=== PATIENT | female | born 1975 | race Caucasian/White ===

== ENCOUNTER 2017-11-26 20:49 | Emergency (ER) | payer OTHER, BC ==
--- NOTE | 2017-11-26 20:54 | EDM.PDOC ---
ED HPI GENERAL MEDICAL PROBLEM - General Chief Complaint: Trauma Stated Complaint: poss head injury Time Seen by Provider: 11/26/17 20:49 Source of Information: Reports: Patient, Family () History Limitations: Reports: No Limitations - History of Present Illness INITIAL COMMENTS - FREE TEXT/NARRATIVE: A trauma alert was called on this patient. The patient states that she was bucked off a horse onto pasture dirt around 20: 00 this evening. She was not wearing a helmet. She states that she recalls being bucked off, and believes that she landed on her head, but does not recall the landing itself. There may have been brief loss of consciousness. The patient complains of a left-sided headache, upper and middle left back pain , and lower left rib pain with breathing. She denies injury to any of her extremities. A cervical collar was placed immediately after arrival to the ED. The patient's PCP is Brit Cruz. Left Abdomen Pain Score (Numeric/FACES): 10 Headache Pain Score (Numeric/FACES): 10 - Related Data Allergies Allergy/AdvReac Type Severity Reaction Status Date / Time No Known Allergies Allergy Verified 11/26/17 21:00 Home Meds: Home Meds Norgestimate-Ethinyl Estradiol [Tri-Sprintec Tablet] 1 tab PO DAILY 08/04/14 [ History] Venlafaxine HCl [Venlafaxine ER] 1 cap PO DAILY 08/04/14 [History] Past Medical History Psychiatric History: Reports: Depression - Past Surgical History HEENT Surgical History: Reports: Naso-Sinus Surgery, Oral Surgery (wisdom teeth extraction) Female Surgical History: Reports: Section (x 1) Musculoskeletal Surgical History: Reports: Arthroscopic Knee (left), Carpal Tunnel (bilateral) Social & Family History - Tobacco Use Smoking Status *Q: Never Smoker - Alcohol Use Alcohol Use History: Yes Alcohol Use Frequency: Socially - Recreational Drug Use Recreational Drug Use: No - Living Situation & Occupation Living situation: Reports: , with Spouse, with Family (daughter) 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 ED EXAM, GENERAL - Physical Exam Exam: See Below Exam Limited By: No Limitations General Appearance: Alert, WD/WN, No Apparent Distress Eye Exam: Bilateral Eye: EOMI, Normal Inspection Ears: Normal External Exam, Normal Canal, Hearing Grossly Normal, Normal TMs Nose: Normal Inspection, No Blood Throat/Mouth: Normal Inspection, Normal Lips, Normal Voice, No Airway Compromise Head: Normocephalic, Other (Slight ecchymosis to the left forehead and about the left eye) Neck: Normal Inspection, Supple, Non-Tender, Full Range of Motion Respiratory/Chest: No Respiratory Distress, Lungs Clear, Normal Breath Sounds, No Accessory Muscle Use, Other (No visible abnormality to the lower left ribs, such as swelling, erythema, ecchymosis, or abrasion, however, the patient has tenderness to palpation in that area) Cardiovascular: Normal Peripheral Pulses, Regular Rate, Rhythm, No Edema, No Gallop, No JVD, No Murmur, No Rub Peripheral Pulses: 4+: Radial (L), Radial (R) GI/Abdominal: Normal Bowel Sounds, Soft, Non-Tender, No Organomegaly, No Distention, No Abnormal Bruit, No Mass (Female) Exam: Deferred Rectal (Female) Exam: Deferred Back Exam: Normal Inspection, Full Range of Motion, NT Extremities: Normal Inspection, Normal Range of Motion, Non-Tender, No Pedal Edema, Normal Capillary Refill Neurological: Alert, Oriented, CN II-XII Intact, Normal Cognition, No Motor/ Sensory Deficits Psychiatric: Normal Affect Skin Exam: Warm, Dry, Intact, Normal Color, No Rash Course - Vital Signs Last Recorded V/S: Last Vital Signs Temp 36.4 C 11/26/17 20:53 Pulse 88 11/26/17 22:15 Resp 18 11/26/17 22:15 BP 135/78 11/26/17 22:15 Pulse Ox 99 11/26/17 22:15 - Orders/Labs/Meds Orders: Active Orders 24 hr Category Date Time Status Cervical Spine wo Cont [CT] Stat Exams 11/26/17 20:50 Taken Chest 1V Frontal [CR] Stat Exams 11/26/17 20:52 Taken Chest Abdomen Pelvis w Cont [CT] Stat Exams 11/26/17 20:50 Taken Head wo Cont [CT] Stat Exams 11/26/17 20:50 Taken Labs: Laboratory Tests 11/26/17 11/26/17 11/26/17 Range/Units 20:55 20:55 20:55 WBC 7.41 (3.98-10.04) K/mm3 RBC 4.58 (3.98-5.22) M/mm3 Hgb 14.0 (11.2-15.7) gm/L Hct 41.1 (34.1-44.9) % MCV 89.7 (79.4-94.8) fl MCH 30.6 (25.6-32.2) pg MCHC 34.1 (32.2-35.5) g/dl RDW Std Deviation 39.7 (36.4-46.3) fL Plt Count 385 H (182-369) K/mm3 MPV 8.8 L (9.4-12.3) fl Neutrophils % (Manual) 52 (40-60) % Band Neutrophils % 1 (0-10) % Lymphocytes % (Manual) 37 (20-40) % Atypical Lymphs % 0 % Monocytes % (Manual) 7 (2-10) % Eosinophils % (Manual) 1 (0.7-5.8) % Basophils % (Manual) 2 H (0.1-1.2) Platelet Estimate Adequate RBC Morph Comment Normal PT 10.3 (9.5-12.1) SECONDS INR 0.94 APTT 22 L (24-31) SECONDS Sodium 140 (136-145) mEq/L Potassium 3.4 L (3.5-5.1) mEq/L Chloride 104 (98-107) mEq/L Carbon Dioxide 20 L (21-32) mEq/L Anion Gap 19.4 H (5-15) BUN 22 H (7-18) mg/dL Creatinine 1.2 H (0.55-1.02) mg/dL Est Cr Clr Drug Dosing 49.29 mL/min Estimated GFR (MDRD) 50 (>60) mL/min BUN/Creatinine Ratio 18.3 H (14-18) Glucose 110 H (74-106) mg/dL Calcium 9.0 (8.5-10.1) mg/dL Total Bilirubin 0.1 L (0.2-1.0) mg/dL AST 29 (15-37) U/L ALT 30 (14-59) U/L Alkaline Phosphatase 74 (46-116) U/L Total Protein 7.7 (6.4-8.2) g/dl Albumin 3.8 (3.4-5.0) g/dl Globulin 3.9 gm/dL Albumin/Globulin Ratio 1.0 (1-2) HCG, Quant mIU/mL 11/26/17 Range/Units 20:55 WBC (3.98-10.04) K/mm3 RBC (3.98-5.22) M/mm3 Hgb (11.2-15.7) gm/L Hct (34.1-44.9) % MCV (79.4-94.8) fl MCH (25.6-32.2) pg MCHC (32.2-35.5) g/dl RDW Std Deviation (36.4-46.3) fL Plt Count (182-369) K/mm3 MPV (9.4-12.3) fl Neutrophils % (Manual) (40-60) % Band Neutrophils % (0-10) % Lymphocytes % (Manual) (20-40) % Atypical Lymphs % % Monocytes % (Manual) (2-10) % Eosinophils % (Manual) (0.7-5.8) % Basophils % (Manual) (0.1-1.2) Platelet Estimate RBC Morph Comment PT (9.5-12.1) SECONDS INR APTT (24-31) SECONDS Sodium (136-145) mEq/L Potassium (3.5-5.1) mEq/L Chloride (98-107) mEq/L Carbon Dioxide (21-32) mEq/L Anion Gap (5-15) BUN (7-18) mg/dL Creatinine (0.55-1.02) mg/dL Est Cr Clr Drug Dosing mL/min Estimated GFR (MDRD) (>60) mL/min BUN/Creatinine Ratio (14-18) Glucose (74-106) mg/dL Calcium (8.5-10.1) mg/dL Total Bilirubin (0.2-1.0) mg/dL AST (15-37) U/L ALT (14-59) U/L Alkaline Phosphatase (46-116) U/L Total Protein (6.4-8.2) g/dl Albumin (3.4-5.0) g/dl Globulin gm/dL Albumin/Globulin Ratio (1-2) HCG, Quant < 1.0 mIU/mL Meds: Medications Discontinued Medications Generic Name Dose Route Start Last Admin Trade Name Freq PRN Reason Stop Dose Admin Hydrocodone Bitart/Acetaminophen 2 tab 08/14/18 22:15 11/26/17 22:26 Bunnell 325-5 Mg PO 11/26/17 22:16 2 tab ONETIME ONE Administration Sodium Chloride 1,000 mls @ 150 mls/hr 11/26/17 21:00 11/26/17 20:57 Normal Saline IV 150 mls/hr ASDIRECTED ANKITA Administration Iopamidol 150 ml 11/26/17 21:07 11/26/17 21:07 Isovue-300 (61%) IVPUSH 11/26/17 21:08 150 ml ONETIME ONE Administration Ondansetron HCl 4 mg 11/26/17 22:15 11/26/17 22:25 Zofran Odt PO 11/26/17 22:16 4 mg ONETIME ONE Administration - Re-Assessments/Exams Free Text/Narrative Re-Assessment/Exam: 11/26/17 21:10 Portable chest radiograph appears to be grossly normal. Cardiac silhouette is within normal limits. No pulmonary vascular congestion. No pleural effusions. No focal infiltrate. No pneumothorax. Above-average amount of gastric air incidentally noted. No abdominal free air noted. Formal read per the Radiologist pending. 11/26/17 21:31 CT of the head without contrast is read by [facility] as "Incidental/ nonacute findings are listed above." 11/26/17 21:39 CT of the cervical spine without contrast is read by [facility] as: 1. No acute fracture of the cervical spine. 2. Incidental/nonacute findings are listed above. CT of the chest with IV contrast is read by [facility] as "No sign of acute traumatic sequelae to the chest." CT of the abdomen and pelvis with IV contrast is read by [facility] as "No sign of acute traumatic sequelae to the abdomen and pelvis." 11/26/17 22:15 Test results discussed with the patient and her . Tonight's workup is unremarkable. No broken bones or internal injuries were found. The patient will receive 2 tablets of Bunnell and one tablet of Zofran ODT, then I think she can safely be discharged home. I do not see an indication for admitting her to the hospital. I recommended that she stay well hydrated and get plenty of rest tonight, then resume her usual activities tomorrow, noting that her generalized aches and pains will take longer to recover if she stays in bed. I'm recommending [id number] ibuprofen as needed for discomfort, starting tomorrow. Departure - Departure Time of Disposition: 22:17 Disposition: Home, Self-Care 01 Condition: Good Clinical Impression: Animal-rider injured by fall from or being thrown from horse in noncollision accident, initial encounter, Multiple contusions - Discharge Information *PRESCRIPTION DRUG MONITORING PROGRAM REVIEWED*: Not Applicable *COPY OF PRESCRIPTION DRUG MONITORING REPORT IN PATIENT LUDA: Not Applicable Instructions: Contusion, [id number] Referrals: Brit Cruz NP [Primary Care Provider] - Forms: ED Department Discharge Additional Instructions: You were seen in the emergency room after being thrown from a horse, and possibly knocked out. Workup in the ER included a CT scans of your head, cervical spine, chest, abdomen, and pelvis, along with a chest x-ray and blood work. Your entire workup was unremarkable. No broken bones were found, and no internal injuries were found. You were given a narcotic pain reliever in the ER. We recommend that you stay well hydrated and get plenty of rest tonight. You should expect that you will be sore tomorrow, however, it is important that you get up and resume your usual activities. Do not stay in bed. Take over-the- counter ibuprofen, 2-3 tablets (400-600 mg) every 8 hours, with food, as needed for discomfort. If any other problems, please do not hesitate to return to the ER. - My Orders Last 24 Hours: My Active Orders 11/26/17 20:50 Cervical Spine wo Cont [CT] Stat Chest Abdomen Pelvis w Cont [CT] Stat Head wo Cont [CT] Stat 11/26/17 20:52 Chest 1V Frontal [CR] Stat - Assessment/Plan Last 24 Hours: My Active Orders 11/26/17 20:50 Cervical Spine wo Cont [CT] Stat Chest Abdomen Pelvis w Cont [CT] Stat Head wo Cont [CT] Stat 11/26/17 20:52 Chest 1V Frontal [CR] Stat
[2017-11-26] MEDS ORDERED: Iopamidol 612 MG/ML 100 ML Bottle IVPUSH ONE (20:58)
[2017-11-26] MEDS ORDERED: Sodium Chloride 0.9% 1,000 ML IV SCH (21:00)
[2017-11-26] MEDS ORDERED: Iopamidol 612 MG/ML 150 ML Bottle IVPUSH ONE (21:07)
[2017-11-26] MEDS ORDERED: Ondansetron 4 MG Tab.DIS PO ONE (22:15)
[2017-11-26] MEDS ORDERED: Acetaminophen/HYDROcodone 325-5 MG Tab PO ONE (22:15)
[2017-11-26 23:01] VITALS: BP 135/78
--- NOTE | 2017-11-27 09:43 | CR ---
Chest: AP view of the chest was obtained. Comparison: Prior chest CT study performed on the same day. Heart size and mediastinum are normal. Lungs are clear. No discrete bony abnormality is identified. Impression: 1. Nothing acute is identified on AP chest x-ray. Diagnostic code #1
--- NOTE | 2017-11-27 09:43 | CT ---
CT cervical spine Technique: Multiple axial sections were obtained from above C1 inferiorly to the bottom of T2. Reconstructed sagittal and coronal images were reviewed. Comparison: No prior exams. Findings: Vertebral body heights and disc spaces are maintained. No fracture is seen. No bony central or bony neural foraminal stenosis is seen. No abnormal subluxation is seen on the reconstructed sagittal images. An incidental note of nonunion of the posterior arch of C1 which is a normal variant. Impression: 1. Nothing acute is identified on CT study of the cervical spine. Diagnostic code #2 I agree with preliminary report issued by [facility] ([facility] report finalized on 11/26/17, 10:37 PM Central Time)
--- NOTE | 2017-11-27 09:43 | CT ---
Head CT Technique: Multiple axial sections through the brain were obtained. Intravenous contrast was not utilized. Comparison: No prior intracranial imaging is seen. Findings: Ventricles along with basal cisterns and sulci over the convexities are within normal limits for the patient's age. No abnormal parenchymal densities are seen. No evidence of intracranial hemorrhage. No midline shift or mass effect is seen. Bone window settings were reviewed which show no acute calvarial abnormality. Visualized sinuses are clear. Impression: 1. Nothing acute is seen on noncontrast head CT exam. Diagnostic code #1 I agree with preliminary report issued by [facility] ([facility] report finalized on 11/26/17, 10:29 PM Central Time)
--- NOTE | 2017-11-27 09:43 | CT ---
CT chest Technique: Multiple axial sections through the chest were obtained. Intravenous contrast was not utilized. Comparison: No prior chest imaging. Findings: Mediastinum and hilar regions show no adenopathy or mass. No pericardial thickening is seen. Visualized lung bases are clear. No acute parenchymal change is seen. No pleural effusions or pneumothorax are seen. Bone window settings were reviewed which show no acute bony abnormality. Impression: 1. No abnormality is identified on CT study of the abdomen and pelvis. Diagnostic code #1 I agree with preliminary report issued by [email or web address] ([facility] report finalized on 11/26/17, 10:35 PM Central Time) CT abdomen and pelvis Technique: Multiple axial sections were obtained from above the dome of the diaphragm inferiorly through the pubic symphysis. Intravenous contrast was utilized. No oral contrast has been given. Delayed images were also obtained through the abdomen and pelvis. Comparison: No previous abdominal imaging is available. Findings: Liver shows no focal parenchymal abnormality. Spleen appears within normal limits. Adrenal glands show no nodule. Pancreas is within normal limits. Gallbladder contains no calcified gallstones. Kidneys show symmetric contrast enhancement without hydronephrosis or mass. Aorta shows no aneurysmal dilatation. No retroperitoneal adenopathy or mesenteric abnormalities are seen. No free fluid is seen. Appendix appears normal in size. No inflammatory change is seen. Delayed images show contrast within the ureters and bladder. No contrast extravasation is seen outside the urinary tract. Bone window settings were reviewed which show no discrete osseous abnormality. Impression: 1. Nothing acute seen on CT study of the abdomen and pelvis. Diagnostic code #1 I agree with preliminary report issued by [email or web address] ([facility] report finalized on 11/26/17, 10:35 PM Central Time)
== END 2017-11-26 22:50 | disposition home or self-care (01) ==
LOC: JD.ED 20:49
DX: S00.83XA Contusion of other part of head, initial encounter (principal); V80.010A Animal-rider injured by fall from or being thrown from horse in noncollision accident, initial encounter; F32.9 Major depressive disorder, single episode, unspecified; Z79.899 Other long term (current) drug therapy
CPT/HCPCS: 36415; 70450; 71045; 71260; 72125; 74177; 80053; 84702; 85007; 85027; 85610; 85730; 96360; 96361; 99285; A9270; J7040; Q9967; 99284